=== PATIENT | female | born 1975 | race Hispanic/Latino ===

== ENCOUNTER 2021-11-09 14:17 | Outpatient (CLI) | payer BC, SELFPAY ==
[2021-11-09 15:17] LABS: Basophils Absolute Auto 0.1 K/mm3 (0.0-0.1); Basophils Percent Auto 1.1 % (0.2-1.2); Eosinophils Absolute Auto 0.1 K/mm3 (0-0.3); Eosinophils Percent Auto 2.1 % (0-4.4); Hematocrit 37.9 % (37.0-47.0); Hemoglobin 12.8 g/dL (12.0-15.0); Immature Granulocyte Absolute 0.01 K/mm3 (0.00-0.031); Immature Granulocyte Percent A 0.2 % (0-0.5); Lymphocytes Absolute Auto 1.64 K/mm3 (0.9-3.2); Lymphocytes Percent Auto 37.4 % (18.3-44.2); Mean Corpuscular HGB Conc 33.8 g/dl (32-36); Mean Corpuscular Hemoglobin 31.7 pg (26-34); Mean Corpuscular Volume 93.8 fl (80-100); Mean Platelet Volume 9.8 fl (7.4-10.4); Monocytes Absolute Auto 0.4 K/mm3 (0.1-0.6); Neutrophils Absolute Auto 2.3 K/mm3 (1.3-6.7); Neutrophils Percent Auto 51.2 % (45.5-73.1); Platelet Count Result 244 k/mm3 (150-375); Red Blood Count 4.04 M/mm3 (4.2-5.4); Red Cell Distribution Width 12.6 % (11.5-14.5); White Blood Count 4.4 K/mm3 (4.5-10.0)
== END 2021-11-09 14:18 | disposition home or self-care (01) ==
PROVIDERS: Visit Provider Obstetrics & Gynecology
DX: Z01.818 Encounter for other preprocedural examination (principal); Z90.710 Acquired absence of both cervix and uterus
CPT/HCPCS: 36415; 85025; 86850; 86900; 86901

== ENCOUNTER 2021-11-13 00:18 | Day surgery (SDC) | payer BC, SELFPAY ==
[2021-11-09 09:44] VITALS: BMI 25.4
--- NOTE | 2021-11-09 10:07 | PC.NURSE ---
Report to the Outpatient Waiting Room, entrance under the green pavilion located off [facility], at time __06:00AM on date ___[id number]____. OR Time: __07:30AM . Time changes happen often and if your time is changed the preop area will call you the afternoon before. - You and your visitor will be asked to self-screen and do not enter if you have any COVID symptoms. - Only one visitor and NO children visitors are allowed at this time. - The patient visitor is requested to leave or wait in car when not with patient due to restrictions. - A mask is required within the hospital. Patients may have clear liquids (water, carbonated beverages, clear teas, apple juice) until 3 hours prior to surgery with a maximum of 20 ounces. - No food from midnight until time of surgery - NOTHING TO DRINK AFTER 4:30AM Take the following medications with a SIP of water the morning of surgery: N/A Medications to discontinue per physician MULTIVITAMIN Date to take last [id number]____[id number] Please no make-up, nail egyptian, hairspray, perfume, deodorant, or body powder the day of surgery. No jewelry (including any body piercings) or valuables the day of surgery, leave them at home. Please take a shower or bath the night before, or the morning of, surgery with an antibacterial soap. Wear comfortable, loose fitting clothing. - Jewelry must be removed prior to entering the operating room. Rings and piercings that are not removed may be cut off. - The hospital will not accept responsibility for valuables. - Please leave all valuables, including medications, at home the day of surgery. If you are going home after surgery, a licensed rickshaw driver must drive you home. - NO public transportation without another adult. - We recommend that an adult stay with you for 24 hours following discharge. - We also recommend that you do not drive, make important decision, drink alcoholic beverages, or take any drugs that were not prescribed by your health care provider for at least 24 hours after your discharge time. Follow any additional instructions given to you from your surgeon. If you or anyone in your household have experienced Covid symptoms in the past week, please notify your surgeon or the nurse liaison at the phone number below for possible testing. Telephone instructions given to ____PATIENT___and asked if any additional questions and then verbalized understanding. Patient advised to call surgeon office or pre surgery nurse liaison [phone] if any additional questions.
--- NOTE | 2021-11-10 12:17 | PM.IMHP ---
H&P: HPI History of Present Illness Date/Time: 11/10/21 12:17 Chief Complaint: Pelvic pain/enlarged uterus/bleeding Narrative: This 46-year-old female who is admitted for hysterectomy bilateral sound injected me secondary to enlarged uterus pain bleeding dyspareunia. She has menorrhagia. Ultrasound shown a relatively unremarkable pelvis. She opted to have removal of the uterus and the tubes. Risks and benefits were reviewed including but not exclusive of , aspiration pneumonia, bleeding, transfusion, perforation injury to bowel, bladder, ureters, or other internal organs with the need for open laparotomy. She received the ACOG handout entitled hysterectomy as well as individually handout. She has had a normal Pap smear within the last few months. She and had all questions answered and asked to proceed PMFSH Past Medical History Medical History Bloating Colon cancer screening Gluten intolerance Hx of vertigo Social History Social History Smoking packs per day: 0.5 Smoking cigarettes per day: 10.0 Years smoked: 21 Smoking pack-years: 10.50 Smoking status: Former smoker Tobacco type: cigarettes and e-cigarettes/vaping Second hand tobacco smoke exposure: No Additional smoking assessment comments: CURRENTLY VAPING Alcohol intake: current Drinks per week: 2 Alcohol use details: social Substance use: never Substance use type: does not use Additional living arrangements comments: BOYFRIEND Spiritual care concerns: No Meds Home Medications and Allergies Home Medications Medication Instructions Recorded Confirmed Type loratadine 10 mg tablet (Claritin) 10 mg DAILY 11/09/21 11/09/21 History multivit with minerals-iron 18 1 tablet PO DAILY 11/09/21 11/09/21 History mg-folic ac 400 mcg-vit K 25 mcg tablet (Adults Multivitamin) Allergies Allergy/AdvReac Type Severity Reaction Status Date / Time gluten Allergy Intermediate Diarrhea Verified 11/09/21 09:40 Exam Const: General: cooperative, healthy appearing and comfortable Nutritional Appearance: average body habitus Orientation/consciousness: oriented to person, oriented to place and oriented to time HENMT: Head: normal to inspection Chest: Chest palpation & inspection: normal inspection of the chest Resp: Effort & Inspection: normal respiratory effort Cardio: Rate: regular rate Rhythm: regular rhythm Heart sounds: S1 normal heart sound present and S2 normal heart sound present GI: Inspection: normal to inspection : Speculum Exam - Cervix: normal appearance of the cervix and Cervical os closed Bimanual exam- vagina & uterus: enlarged Bimanual Exam- Adnexa, other: normal adnexae Assessment and Plan Assessment and plan (1) Pelvic pain: Code(s): R10.2 - Pelvic and perineal pain Status: Acute (2) Enlarged uterus: Code(s): N85.2 - Hypertrophy of uterus Status: Acute (3) Vaginal bleeding: Code(s): N93.9 - Abnormal uterine and vaginal bleeding, unspecified Status: Acute Plan Robotic total vaginal hysterectomy bilateral salpingectomy
[2021-11-13] VITALS (10 sets, daily range): BP systolic 90–127; BP diastolic 56–68; PULSE 50–62; RESP 10–18; TEMP 36.3–37; O2SAT 98–100
[2021-11-13] MEDS: ACETAMINOPHEN 500 MG TABLET 1000 MG PO (06:10)
--- NOTE | 2021-11-13 06:43 | WPDHPUPDATE1 ---
History and Physical Update Update Date/Time: 11/13/21 06:43 History and Physical has been reviewed, including an updated exam of the patient. There are NO changes in the patient's condition. Risks, benefits, and alternatives have been discussed and questions answered. Patient agrees to proceed with procedure.
--- NOTE | 2021-11-13 06:53 | P.PNAN_ITS ---
Anes - Initial Pre Proc Eval Procedure: Operation Date: 11/13/21 07:30 Proposed Procedures p Robotic Assisted Total Vaginal Hysterectomy with Bilateral Salpingectomy - Sarthak Green MD Date/Time: 11/13/21 06:53 Surgeon: Sarthak Green MD Pre Op Diagnosis: pelvic pain, heavy bleeding, enlarged uterus Patient Data Age: 46 Gender: F Height: 1.6 m Weight: 66.4 kg Allergies Allergy/AdvReac Type Severity Reaction Status Date / Time gluten Allergy Intermediate Diarrhea Verified 11/09/21 09:40 Home Medications Medication Instructions Recorded Confirmed Type loratadine 10 mg tablet (Claritin) 10 mg DAILY 11/09/21 11/13/21 History multivit with minerals-iron 18 1 tablet PO DAILY 11/09/21 11/13/21 History mg-folic ac 400 mcg-vit K 25 mcg tablet (Adults Multivitamin) hydrocodone 5 mg-acetaminophen 325 1 tablet PO Q4H PRN pain #30 tabs 11/13/21 Rx mg tablet Patient hx anesthesia problems: none Family hx anesthesia problems: none Results Review: All pre-operative results and documents have been reviewed as part of the pre- operative evaluation. [facility] Past Medical History Medical History Bloating Colon cancer screening Gluten intolerance Hx of vertigo Surgical History Surgical History (Updated 11/13/21 @ 06:53 by Sarthak Kaplan MD) History of section Social History Social History Smoking packs per day: 0.5 Smoking cigarettes per day: 10.0 Years smoked: 21 Smoking pack-years: 10.50 Smoking status: Former smoker Tobacco type: cigarettes and e-cigarettes/vaping Second hand tobacco smoke exposure: No Additional smoking assessment comments: CURRENTLY VAPING Alcohol intake: current Drinks per week: 2 Alcohol use details: social Substance use: never Substance use type: does not use Living arrangements: with roommate(s) Additional living arrangements comments: BOYFRIEND Spiritual care concerns: No Anes - Eval Final PreProcedure Day of Procedure 11/13/21 06:53 Patient weight: normal Heart: regular rate and rhythm Lungs: clear to auscultation Airway: Mallampati scale class II Neurological: alert and oriented Last oral intake: >/= 8 hours Emergent: no Anesthetic plan: proceed Anesthesia type and monitoring: general ETT and standard monitoring Results Review: All pre-operative results and documents have been reviewed as part of the pre- operative evaluation. Informed Consent: The patient's anesthetic plan and its attendant risks and benefits were discussed with the patient/family/POA. Questions were solicited and answers provided to the satisfaction of the patient/family/POA.
[2021-11-13] MEDS: LACTATED RINGERS 1,000 ML 30 ML IV CONT ×2 (06:57→08:45)
[2021-11-13] MEDS: KETOROLAC 15 MG/ML VIAL (*BKC) IV PUSH (06:59)
[2021-11-13] MEDS: ceFAZolin 2 GM/D5W 50 ML 2 GM/50 ML BAG IVPB (07:23)
--- NOTE | 2021-11-13 08:33 | W.PM.PROC2 ---
Procedure Note - Detailed Date of Procedure 11/13/21 Pre-op Diagnosis pelvic pain, heavy bleeding, enlarged uterus Post-op Diagnosis Same Procedure Performed Robotic total vaginal hysterectomy bilateral salpingectomy Surgeon Sarthak Green MD Anesthesia General Indications This is a 46-year-old female with symptomatic fibroids and bleeding refractory to medical therapy Findings Fibroid uterus. Normal-appearing ovaries and tubes. Some adhesions were seen anteriorly from the omentum to the anterior abdominal wall Description of Procedure The patient was prepped draped in the normal sterile fashion placed in the dorsal lithotomy position. Under excellent general trach anesthesia weighted speculum placed in posterior fornix vagina. Anterior lip of the cervix grasped with a single tooth tenaculum. Uterus sounded to 11cm. Serial dilatation with fragmented dilators performed followed by passage of the 10. CHARAN and the 3. Cold cup. A 16 Czech catheter was placed in bladder draining clear urine. The weighted speculum and single-tooth removed and the gloves were changed. A supraumbilical incision made the Veress needle passed in the abdomen. Abdomen filled with CO2 gas [id number]. The 8mm trocar advanced in the abdomen. Downside visualized no injury seen. Gas reattached patient placed in Trendelenburg. Right left lateral quadrant incision made and 8mm trocars advanced under direct visualization assuring injury. A right upper quadrant incision made the 8 trocar advanced under direct visualization again assuring injury. Robot was docked. Attention was turned to the assessment counselor. Multiple adhesions were seen anteriorly making difficult to see the uterus. These were sharply dissected using monopolar cautery releasing these adhesions from the anterior abdominal wall. The uterus was noted be large and tortuous with multiple fibroids. Left round ligament was grasped, burned, cut. Anteriorly a bladder flap was by sharply dissecting the peritoneum reflecting bladder caudally away from the cervix uterus the opposite round ligament which was clamped, burned, cut. Next the fallopian tube was dissected away from the ovarian complex and left attached to the uterine origin a villa by sharp dissection. In like fashion the right fallopian tube was dissected away from ovarian complex and left attached to the uterine J origination. Left utero-ovarian ligament was skeletonized conserving the left ovary. This was clamped, burned, cut and brought to the level of the previously cut round ligament. Conserving the right ovary, the utero-ovarian ligament on the right was clamped, burned, cut and brought to level of previously cut round ligament. Next the cardinal broad ligaments on the left were skeletonized clamping burning cutting off carefully hugging the cervix and uterus until the uterine vessels could be seen on the left. These were large and tortuous as expected for fibroid uterus. There were individually clamped, burned, cut. In like fashion the cardinal broad ligaments on the right were serially skeletonized clamping burning cutting and bringing this down lateral edge of the uterine uterus and cervix until the uterine vessels could be seen on right. These were individually clamped, burned, cut. At that point excellent blanching the uterus was seen colpotomy incision was made. Cervix uterus and tubes removed through the vagina. The vagina was then closed with continuous running 0V lock from lateral edge to lateral edge back to midline. Irrigation undertaken no clear in all polyp pedicles appeared dry. The robot was undocked. The gas removed from the abdomen. The incisions closed with 4 Monocryl and glue after the trocars had been removed. The patient was awakened and went to recovery in satisfactory condition. All sponge, needle, instrument counts were correct. There were no immediate complications Estimated Blood Loss 25 Drains No Packing No Pathology
--- NOTE | 2021-11-13 09:40 | PC.NURSE ---
This patient, Michelle Ramirez, was received from PACU per bed on 11/13/21 at 0940. Patient/family oriented to unit policies and routines.
[2021-11-13] MEDS: KETOROLAC 30 MG/ML VIAL (*BKC) IV PUSH (10:05)
[2021-11-13] MEDS: DEXTROSE 5%/LACTATED RINGERS 1,000 ML 125 ML IV CONT (10:05)
[2021-11-13] MEDS: HYDROcodone/acetaminophen (*CRX) 5-325 MG TABLET 1 TAB PO ×3 (12:35→20:27)
[2021-11-13] MEDS: DOCUSATE SODIUM 100 MG CAPSULE PO (16:16)
[2021-11-13] MEDS: SIMETHICONE 80 MG TAB.CHEW PO (20:28)
[2021-11-14] VITALS: BP 122/67; PULSE 54; RESP 16; TEMP 36.7; O2SAT 99
[2021-11-14] MEDS: SIMETHICONE 80 MG TAB.CHEW PO ×3 (00:16→11:34)
[2021-11-14] MEDS: HYDROcodone/acetaminophen (*CRX) 10-325 MG TABLET 1 TAB PO ×4 (00:18→11:34)
[2021-11-14 04:35] VITALS: BP 94/57; PULSE 51; RESP 16; TEMP 36.7; O2SAT 98
[2021-11-14 05:16] LABS: Basophils Percent Auto 0.3 % (0.2-1.2); Eosinophils Percent Auto 0.2 % (0-4.4); Hematocrit 31.5 % (37.0-47.0); Hemoglobin 10.5 g/dL (12.0-15.0); Immature Granulocyte Absolute 0.03 K/mm3 (0.00-0.031); Immature Granulocyte Percent A 0.3 % (0-0.5); Lymphocytes Percent Auto 24.2 % (18.3-44.2); Mean Corpuscular HGB Conc 33.3 g/dl (32-36); Mean Corpuscular Hemoglobin 31.3 pg (26-34); Mean Platelet Volume 9.9 fl (7.4-10.4); Monocytes Absolute Auto 0.6 K/mm3 (0.1-0.6); Monocytes Percent Auto 6.7 % (2.6-8.5); Neutrophils Absolute Auto 6.2 K/mm3 (1.3-6.7); Neutrophils Percent Auto 68.3 % (45.5-73.1); Platelet Count Result 226 k/mm3 (150-375); Red Blood Count 3.35 M/mm3 (4.2-5.4); Red Cell Distribution Width 12.8 % (11.5-14.5); White Blood Count 9.1 K/mm3 (4.5-10.0)
--- NOTE | 2021-11-14 06:49 | PM.DS ---
DS: Admitting Diagnosis Discharge Date 09/13/2021 Admitting Diagnosis excessive heavy bleeding. Symptomatic uterine fibroids. Pelvic pain DS: Discharge Diagnosis Discharge Diagnosis (1) Vaginal bleeding: Code(s): N93.9 - Abnormal uterine and vaginal bleeding, unspecified Status: Acute (2) Enlarged uterus: Code(s): N85.2 - Hypertrophy of uterus Status: Acute (3) Pelvic pain: Code(s): R10.2 - Pelvic and perineal pain Status: Acute DS: Summary Hospital Course Reason for hospitalization: patient was admitted for robotic hysterectomy and bilateral salpingectomy Hospital Course: for admission underwent robotic total vaginal hysterectomy and bilateral salpingectomy on 09/12/2021. Her 24hour course unremarkable. She remained afebrile. She was up, voiding without difficulty, ambulating, generally complaints. She was eating regular diet Time Spent with Patient Time attestation: Total time spent providing and/or coordinating discharge services: DS: Data Data Completed and Pending Pending studies at discharge: Pending at discharge 11/13/21 08:16 Surgical [PTH] Routine Labs on day of discharge: Labs from last 24 hours 11/14/21 04:54 WBC 9.1 RBC 3.35 L Hgb 10.5 L Hct 31.5 L MCV 94.0 MCH 31.3 MCHC 33.3 RDW 12.8 Plt Count 226 MPV 9.9 Immature Gran % (Auto) 0.3 Neut % (Auto) 68.3 Lymph % (Auto) 24.2 [place] % (Auto) 6.7 Eos % (Auto) 0.2 Baso % (Auto) 0.3 Lymph # (Auto) 2.20 [place] # (Auto) 0.6 Eos # (Auto) 0.0 Baso # (Auto) 0.0 Abs Immat Gran (auto) 0.03 Absolute Neuts (auto) 6.2 Absolute Nucleated RBC 0.0 Nucleated RBC % 0.0 Discharge Plan Discharge Patient Disposition: Home, Self-Care Stand Alone Forms: General Discharge Instructions Follow-up/Referrals: Sarthak Lange MD [Physician] - Discharge Medications: New hydrocodone-acetaminophen 5-325 mg tablet 1 tablet PO Q4H PRN (Reason: pain) Qty: 30 0RF Continued loratadine [Claritin] 10 mg Tablet 10 mg DAILY Adults Multivitamin 18 mg iron-400 mcg-25 mcg Tablet 1 tablet PO DAILY
--- NOTE | 2021-11-14 06:51 | PM.GYNPNOP ---
ASSISTANT HVAC MECHANIC - A/P Postoperative Procedures: Procedures Operation Date: 11/13/21 07:30 Actual Procedure Side Surgeon p Robotic Assisted Total Vaginal Hysterectomy with Bilateral Salpingectomy Bilateral Sarthak Green MD Postoperative day: 1 Postoperative status: doing well Postoperative plan: routine post-op care, ambulate, advance diet and discharge Time Spent With Patient Time: Total time spent is greater than 50% in coordination of care (as documented) at patient's floor/unit and/or counseling patient: Time with patient: less than 15 minutes ASSISTANT HVAC MECHANIC- PN:Subj Post-Op Subjective Date/time seen: 11/14/21 06:51 Subjective: patient reports feeling better, patient desires discharge and pain is well controlled Exam Const: General: cooperative, healthy appearing and comfortable Resp: Effort & Inspection: normal respiratory effort GI: Inspection: normal to inspection and scar ( wounds clean drain intact) ASSISTANT HVAC MECHANIC - PN: Obj Data Vital Signs Vital Signs: Vital Signs - 24 hr 11/13/21 07:07 11/13/21 08:45 11/13/21 09:00 Temperature 98.3 F 97.5 F L Pulse Rate 55 L 50 L 54 L Respiratory Rate 16 10 L 14 Blood Pressure 127/68 90/57 L 99/61 L Pulse Oximetry 100 100 100 Oxygen Delivery Room Air Simple Face Mask Simple Face Mask Oxygen Flow Rate 8 8 11/13/21 09:03 11/13/21 09:15 11/13/21 09:29 Temperature Pulse Rate 52 L 54 L Respiratory Rate 14 12 Blood Pressure 111/58 L 118/59 L Pulse Oximetry 100 100 100 Oxygen Delivery Room Air Room Air Room Air Oxygen Flow Rate 11/13/21 09:45 11/13/21 12:08 11/13/21 16:25 Temperature 97.3 F L 98.1 F 97.7 F Pulse Rate 52 L 56 L 62 Respiratory Rate 18 16 18 Blood Pressure 102/56 L 106/65 108/63 Pulse Oximetry 100 99 99 Oxygen Delivery Oxygen Flow Rate 11/13/21 19:30 11/14/21 00:00 11/14/21 04:35 Temperature 98.6 F 98.1 F 98.1 F Pulse Rate 50 L 54 L 51 L Respiratory Rate 18 16 16 Blood Pressure 105/63 122/67 94/57 L Pulse Oximetry 98 99 98 Oxygen Delivery Oxygen Flow Rate Intake/Output Intake/Output: Intake & Output 11/11/21 11/12/21 11/13/21 11/14/21 23:59 23:59 23:59 23:59 Intake Total 2450 500 Output Total 1620 Balance 830 500 Meds/Results Medications: Active Medications Generic Name Dose Route Start Last Admin Trade Name Freq PRN Reason Stop Dose Admin Hydrocodone Bitart/Acetaminophen 1 tab 11/13/21 09:30 11/13/21 20:27 Hydrocodone/Acetaminophen (*Crx) 5-325 Mg Tablet PO 1 tab Q3H PRN Administration Pain Rated 5 or Less Hydrocodone Bitart/Acetaminophen 1 tab 11/13/21 09:30 11/14/21 05:01 Hydrocodone/Acetaminophen (*Crx) 10-325 Mg Tablet PO 1 tab Q3H PRN Administration Pain Rated 6 or Greater Docusate Sodium 100 mg 11/13/21 09:30 11/13/21 16:16 Docusate Sodium 100 Mg Capsule PO 100 mg BID MARYSOL Administration Enoxaparin Sodium 40 mg 11/14/21 07:00 Enoxaparin 40 Mg/0.4 Ml Syringe SUB-Q Q24H MARYSOL Dextrose/Lactated Ringer's 1,000 mls @ 125 mls/hr 11/13/21 09:30 11/13/21 18:17 Dextrose 5%/Lactated Ringers IV CONT Not Given .Q8H MARYSOL Ibuprofen 600 mg 11/13/21 09:30 Ibuprofen 600 Mg Tablet PO Q6H PRN Cramping Ketorolac Tromethamine 30 mg 11/13/21 09:30 11/13/21 10:05 Ketorolac 30 Mg/Ml Vial (*Bkc) IV PUSH 11/18/21 09:29 30 mg Q6H PRN Administration Pain Rated 4-6 Naloxone HCl 0.1 mg 11/13/21 09:30 Naloxone Hcl 0.4 Mg/Ml Vial IV PUSH Q2M PRN Respiratory rate less than 10 Ondansetron HCl 4 mg 11/13/21 09:30 Ondansetron Inj 4 Mg/2 Ml Vial IV PUSH Q6H PRN Nausea And Vomiting Simethicone 80 mg 11/13/21 09:30 11/14/21 00:16 Simethicone 80 Mg Tab.Chew PO 80 mg Q2H PRN Administration Gas Labs CBC & Chem 7: 11/14/21 04:54 Labs: Laboratory Results - last 24 hr 09/17/22 04:54 WBC 9.1 RBC 3.35 L Hgb 10.5 L Hct 31.5 L MCV 94.0 MCH 31.3 MCHC
[2021-11-14 07:10] VITALS: BP 92/54; PULSE 51; RESP 18; TEMP 36.7; O2SAT 98
--- NOTE | 2021-11-14 07:43 | P.PNAN_ITS ---
Anes - Prog Note Post-Op Date/Time: 11/14/21 07:43 Cardiovascular status: normal Respiratory status: normal Airway patency: baseline Mental status: baseline Post-Op hydration status: normal Vital Signs: Last Vital Signs Temp 36.7 C 11/14/21 04:35 Pulse 51 L 11/14/21 04:35 Resp 16 11/14/21 04:35 BP 94/57 L 11/14/21 04:35 Pulse Ox 98 11/14/21 04:35 O2 Del Method Room Air 11/13/21 09:29 O2 Flow Rate 8 11/13/21 09:00 Pain Score (VAS): 04/09 I/O: Intake & Output 11/13/21 11/13/21 11/14/21 15:59 23:59 07:59 Intake Total 300 2150 500 Output Total 95 1525 Balance 205 625 500 Laboratory Tests 11/14/21 04:54 11/14/21 04:54 WBC 9.1 RBC 3.35 L Hgb 10.5 L Hct 31.5 L MCV 94.0 MCH 31.3 MCHC 33.3 RDW 12.8 Plt Count 226 MPV 9.9 Immature Gran % (Auto) 0.3 Neut % (Auto) 68.3 Lymph % (Auto) 24.2 [place] % (Auto) 6.7 Eos % (Auto) 0.2 Baso % (Auto) 0.3 Lymph # (Auto) 2.20 [place] # (Auto) 0.6 Eos # (Auto) 0.0 Baso # (Auto) 0.0 Abs Immat Gran (auto) 0.03 Absolute Neuts (auto) 6.2 Absolute Nucleated RBC 0.0 Nucleated RBC % 0.0 Post-procedural complaints: none Patient Feedback: Patient satisfied with anesthetic care.
[2021-11-14] MEDS: DOCUSATE SODIUM 100 MG CAPSULE PO (07:57)
[2021-11-14] MEDS: ENOXAPARIN 40 MG/0.4 ML SYRINGE SUB-Q (07:58)
[2021-11-14] MEDS: IBUPROFEN 600 MG TABLET PO (11:32)
== END 2021-11-14 11:58 | disposition home or self-care (01) ==
LOC: ANHSURGERY 07:12 → ANHOB2 09:32
PROVIDERS: Visit Provider Obstetrics & Gynecology
PROC: (CPT 58552; principal; 2021-11-13 07:30)
DX: N92.0 Excessive and frequent menstruation with regular cycle (principal); R10.2 Pelvic and perineal pain; N93.9 Abnormal uterine and vaginal bleeding, unspecified; D25.9 Leiomyoma of uterus, unspecified; N73.6 Female pelvic peritoneal adhesions (postinfective); N94.10 Unspecified dyspareunia; F17.290 Nicotine dependence, other tobacco product, uncomplicated
CPT/HCPCS: 58552; S2900; 36415; 85025; 86850; 86900; 86901; 88307; 99199; A9270; J0461; J0690; J1100; J1650; J1885; J2250; J2405; J2704; J2710; J3010; J7030; J7120; J7121

== ENCOUNTER 2025-01-18 11:44 | Outpatient (CLI) | payer BC, SELFPAY ==
--- OUTSIDE RECORDS SUMMARY | 2025-01-18 11:46 | XMS_ITS | Encounter Summary ---
Author Organization [facility] Healthcare Address [address] [place] [id number] Care Team Providers Care Outside Industrial Sales Representative Name Role Phone Unknown, Notinfile Primary Care Provider Unavail able Encounter Details Date Type Department Care Team (Late st Contact Info) Description 11/19/2024 Results Follow-Up [facility] Medical Group Sports Medicine and Primary Care at [address] [place] [address] Michael Elam, [address] [place] [address] MRI Wrist Arthrogram Right W Contrast Social History Tobacco Use Types Packs/Day Years Used Date Smoking Tobacco: Every Day E-cigarettes AUDIT-C Answer Date Recorded Q1: How often do you have a drink containing alcohol? Never 11/23/2024 Q2: How many drinks containi ng alcohol do you have on a typical day when you are drinking? Patient does not drink Q3: How often do you have si x or more drinks on one occasion? 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 Patient isscheduled on 11/23/24. * Result Encounter Note - Iva Rushing MA - 11/19/2024 3:13 PM CDT .Left message for patient to return my call for results. * Telephone Encounter - Collette Perez - 11/19/2024 2:43 PM CDT Patient is calling for results documented in this encounter Plan of Treatment Not on file documented as of this encounter Visit Diagnoses Not on filedocumented in this encounter Care Teams Outside Industrial Sales Representative Relationship Specialty Start Date End Date Unknown, Notinfile PCP - General 10/17/24 documented as of this encounter
[2025-01-18 12:51] LABS: Hematocrit 39.3 % (37.0-47.0); Hemoglobin 13.1 g/dL (12.0-15.0); Immature Granulocyte Percent A 0.7 % (0-0.5); Lymphocytes Absolute Auto 1.01 K/mm3 (0.9-3.2); Mean Corpuscular HGB Conc 33.3 g/dl (32-36); Mean Corpuscular Hemoglobin 32.2 pg (26-34); Mean Corpuscular Volume 96.6 fl (80-100); Nucleated Red Blood Cells Absolute Auto 0.000 K/mm3 (0.0-0.012); Nucleated Red Blood Cells Perc 0.0 % (0.0-0.2); Platelet Count Result 254 k/mm3 (150-375); Red Blood Count 4.07 M/mm3 (4.2-5.4); White Blood Count 5.4 K/mm3 (4.5-10.0)
[2025-01-18 12:58] LABS: Alanine Aminotransferase 23 U/L (6-35); Albumin Level 4.2 g/dL (3.5-5.1); Alkaline Phosphatase 92 U/L (38-126); Anion Gap 5 mmol/L (4-12); Aspartate Amino Transferase 41 U/L (14-36); Bilirubin,Total 0.6 mg/dL (0.2-1.3); Blood Urea Nitrogen 24 mg/dL (7-17); Calcium 8.9 mg/dL (8.4-10.2); Carbon Dioxide 27 mmol/L (22-30); Chloride 104 mmol/L (98-107); Cholesterol 204 mg/dL (0-200); Estimated Glomerular Filt Rate 53; Glucose 81 mg/dL (65-110); HDL Direct 87 mg/dL; Potassium 3.8 mmol/L (3.4-5.0); Sodium 136 mmol/L (137-145); Total Protein 6.8 g/dL (6.3-8.2); Triglycerides 94 mg/dL (<150)
[2025-01-18 12:59] LABS: Iron 78 ug/dL (37-170)
[2025-01-18 13:15] LABS: Percent Iron Saturation 25 % (20-50)
[2025-01-18 13:18] LABS: Free T3 3.54 pg/mL (2.71-6.16); Free T4 Free Thyroxine 0.92 ng/dL (0.78-2.19)
[2025-01-18 13:29] LABS: Thyroid Stimulating Hormone 0.647 uIU/mL (0.465-4.680)
[2025-01-18 13:51] LABS: Hemoglobin A1C 5.1 % (<5.7)
[2025-01-19 07:09] LABS: FSH 5.9 mIU/mL (.); LH 5.1 mIU/mL (.)
[2025-01-23 22:07] LABS: Estradiol, Sensitive 28.4 pg/mL (.)
== END 2025-01-18 11:45 | disposition home or self-care (01) ==
LOC: ANHGOSHLAB 11:45
PROVIDERS: PCP Nurse Practitioner Family; Visit Provider Nurse Practitioner Family
DX: K90.41 Non-celiac gluten sensitivity (principal); R14.0 Abdominal distension (gaseous); R53.83 Other fatigue; R73.01 Impaired fasting glucose; H53.9 Unspecified visual disturbance
CPT/HCPCS: 36415; 80053; 80061; 82306; 82533; 82670; 83001; 83002; 83036; 83540; 83550; 84439; 84443; 84481; 85025